=== PATIENT | female | born 1965 | race Caucasian/White ===

== ENCOUNTER 2025-02-18 02:10 | Day surgery (SDC) | payer OTHER, SELFPAY ==
[2025-02-16 09:28] VITALS: BMI 58.0
[2025-02-18 09:37] VITALS: BP 112/66; PULSE 73; RESP 18; TEMP 36.1; O2SAT 100; BMI 57.3
--- NOTE | 2025-02-18 09:41 | SUR.PREOP ---
Pt reports no menstrual cycle in the last year, currently has IUD in place. Reports there is no possible way she is . Spoke with Dr. Mars, received verbal that no urine preg necessary.
[2025-02-18] MEDS: LACTATED RINGERS 1,000 ML 150 ML IV CONT (09:58)
--- NOTE | 2025-02-18 10:20 | WPDANESEPPF ---
Anes - Initial Pre Proc Eval Procedure: Operation Date: 02/18/25 10:30 Proposed Procedures p Diagnostic Colonoscopy - Phil Miguel MD Date/Time: 02/18/25 10:20 Surgeon: Phil Miguel MD Pre Op Diagnosis: Hemorrhage of anus and rectum Patient Data Age: 59 Gender: F Height: 1.7 m Weight: 166 kg Last Vital Signs Temp 97 F L 02/18/25 09:37 Pulse 73 02/18/25 09:37 Resp 18 02/18/25 09:37 BP 112/66 02/18/25 09:37 Pulse Ox 100 02/18/25 09:37 O2 Del Method Room Air 02/18/25 09:37 Allergies Allergy/AdvReac Type Severity Reaction Status Date / Time clarithromycin Allergy Unknown Hives Verified 02/18/25 09:36 metronidazole Allergy Unknown Hives and Verified 02/18/25 09:36 Rash Home Medications ?Medication ?Instructions ?Recorded ?Confirmed ?Type aspirin 325 mg tablet 325 mg PO DAILY 10/30/24 02/18/25 History cholecalciferol (vitamin D3) 125 125 mcg PO DAILY 10/30/24 02/18/25 History mcg (5,000 unit) capsule cyanocobalamin (vitamin B-12) 1,000 mcg PO DAILY 10/30/24 02/18/25 History 1,000 mcg tablet (Vitamin B-12) ferrous sulfate 325 mg (65 mg 325 mg PO DAILY 10/30/24 02/16/25 History iron) tablet,delayed release levothyroxine 200 mcg tablet 225 mcg PO DAILY 10/30/24 02/16/25 History (Synthroid) levothyroxine 25 mcg tablet 225 mcg PO DAILY 10/30/24 02/18/25 History (Synthroid) lisinopril 20 mg tablet 20 mg PO DAILY 10/30/24 02/18/25 History lorazepam 0.5 mg tablet (Ativan) 0.5 mg PO TID PRN anxiety 10/30/24 02/18/25 History metformin 500 mg tablet 500 mg PO DAILY 10/30/24 02/18/25 History naproxen 500 mg tablet (Naprosyn) 500 mg PO BID 10/30/24 02/18/25 History omeprazole 20 mg capsule,delayed 20 mg PO BID 10/30/24 02/18/25 History release tirzepatide 12.5 mg/0.5 mL 12.5 mg subcut WEEKLY 10/30/24 02/18/25 History subcutaneous pen injector (Mounjaro) tirzepatide 10 mg/0.5 mL 12.5 mg subcut WEEKLY 10/31/24 02/16/25 History subcutaneous pen injector (Mounjaro) Laboratory Tests 02/18/25 09:57 POC Capillary Glucose Pending Patient hx anesthesia problems: none Family hx anesthesia problems: none Results Review: All pre-operative results and documents have been reviewed as part of the pre-operative evaluation. [facility] Past Medical History Medical History Colonoscopy planned History of endometrial biopsy Scoliosis Hypothyroidism Hypertension GERD (gastroesophageal reflux disease) Clotting disorder Surgical History Surgical History H/O: hysterectomy H/O section History of breast biopsy History of abdominal surgery Family History Family History Mother Cerebrovascular accident Father Rheumatoid aortitis Seizures Sibling Epilepsy Social History Social History Smoking status: Never smoker Alcohol intake: former Substance use: never Anes - Eval Final PreProcedure Day of Procedure 02/18/25 10:20 Patient weight: morbidly obese Lungs: normal air movement Airway: Mallampati scale class II Neurological: alert and oriented Last oral intake: >/= 8 hours ASA classification: IV Emergent: no Anesthetic plan: proceed Anesthesia type and monitoring: general GIVS and standard monitoring Results Review: All pre-operative results and documents have been reviewed as part of the pre-operative evaluation. BMI 57, DM fsbs 91, on GLP1 off for 13 days, HTN, pt w mixed connective tissue disease. Pt essentially nonambulatory, no cp or sob w brief movements Informed Consent: The patient's anesthetic plan and its attendant risks and benefits were discussed with the patient/family/POA. Questions were solicited and answers provided to the satisfaction of the patient/family/POA.
--- NOTE | 2025-02-18 10:25 | PM.HPGS ---
History of Present Illness History of Present Illness Consent: Risks, benefits, and alternatives have been discussed and questions answered. Patient agrees to proceed with procedure. Chief complaint: Hemorrhage of anus and rectum Narrative: Tesha Sylvester is a 59 year old female with intermittent rectal bleeding, last colonoscopy 2014 Review of Systems Review of Systems: All systems reviewed & are unremarkable except as noted in HPI and below PMFSH Past Medical History Medical History Colonoscopy planned History of endometrial biopsy Scoliosis Hypothyroidism Hypertension GERD (gastroesophageal reflux disease) Clotting disorder Surgical History Surgical History H/O: hysterectomy H/O section History of breast biopsy History of abdominal surgery Family History Family History Mother Cerebrovascular accident Father Rheumatoid aortitis Seizures Sibling Epilepsy Social History Social History Smoking status: Never smoker Alcohol intake: former Substance use: never Meds Home Medications and Allergies Home Medications ?Medication ?Instructions ?Recorded ?Confirmed ?Type aspirin 325 mg tablet 325 mg PO DAILY 10/30/24 02/18/25 History cholecalciferol (vitamin D3) 125 125 mcg PO DAILY 10/30/24 02/18/25 History mcg (5,000 unit) capsule cyanocobalamin (vitamin B-12) 1,000 mcg PO DAILY 10/30/24 02/18/25 History 1,000 mcg tablet (Vitamin B-12) ferrous sulfate 325 mg (65 mg 325 mg PO DAILY 10/30/24 02/16/25 History iron) tablet,delayed release levothyroxine 200 mcg tablet 225 mcg PO DAILY 10/30/24 02/16/25 History (Synthroid) levothyroxine 25 mcg tablet 225 mcg PO DAILY 10/30/24 02/18/25 History (Synthroid) lisinopril 20 mg tablet 20 mg PO DAILY 10/30/24 02/18/25 History lorazepam 0.5 mg tablet (Ativan) 0.5 mg PO TID PRN anxiety 10/30/24 02/18/25 History metformin 500 mg tablet 500 mg PO DAILY 10/30/24 02/18/25 History naproxen 500 mg tablet (Naprosyn) 500 mg PO BID 10/30/24 02/18/25 History omeprazole 20 mg capsule,delayed 20 mg PO BID 10/30/24 02/18/25 History release tirzepatide 12.5 mg/0.5 mL 12.5 mg subcut WEEKLY 10/30/24 02/18/25 History subcutaneous pen injector (Mounjaro) tirzepatide 10 mg/0.5 mL 12.5 mg subcut WEEKLY 10/31/24 02/16/25 History subcutaneous pen injector (Mounjaro) Allergies Allergy/AdvReac Type Severity Reaction Status Date / Time clarithromycin Allergy Unknown Hives Verified 02/18/25 09:36 metronidazole Allergy Unknown Hives and Verified 02/18/25 09:36 Rash Vital Signs Vital Signs - 24 hr 02/18/25 09:37 Temperature 97 F L Pulse Rate 73 Respiratory Rate 18 Blood Pressure 112/66 Pulse Oximetry 100 Oxygen Delivery Room Air Exam Const: General: comfortable and no acute distress HENMT: Face/Nose/Sinus: Normal nares present Eyes: General: appearance normal, both eyes and all related structures Neck: Neck: no JVD Resp: Auscultation: clear to auscultation bilaterally Cardio: Rate: regular rate Rhythm: regular rhythm GI: Inspection: non-distended GI Palp: Yes Soft to palpation Skin: General skin exam: normal color Neuro: Speech: normal speech Extrem: General: normal to inspection Psych: Mental Status: mental status grossly normal Assessment and Plan Assessment and plan (1) Rectal bleeding: Code(s): K62.5 - Hemorrhage of anus and rectum Status: Acute Assessment and Plan: colonoscopy
[2025-02-18 10:46] VITALS: BP 109/83; PULSE 78; RESP 16; O2SAT 100
--- NOTE | 2025-02-18 10:46 | S_PTH ---
PATIENT: Tesha Sung LOC: [facility] Ram#:[id number] AGE/SX: 59/F ROOM: RE02/18/[address]: Phil Miguel MD : 1965 BED: DIS: 02/18/2025 SPEC #: [id number] RECD: 02/18/25 13:43 STATUS: HEATHER REMichael #: [id number] LOGAN: 02/18/25 10:[address]: Phil Miguel DEPT: [facility] Surgical RECD BY: Cecilia Mon ENTERED: 02/18/25 13:43 SP TYPE: Surgical OTHR DR: Jeff Daley, Tissues: A - Colon Polypectomy Procedures: Hematoxylin and Eosin Stain Gross and Microscopic Level 4
[2025-02-18 10:56] VITALS: BP 115/55; PULSE 75; RESP 24; O2SAT 100
[2025-02-18 11:06] VITALS: BP 96/54; PULSE 72; RESP 15; O2SAT 100
== END 2025-02-18 11:23 | disposition home or self-care (01) ==
PROVIDERS: PCP Internal Medicine; Referring Provider Nurse Practitioner Family; Visit Provider Internal Medicine Gastroenterology
PROC: 0DJD8ZZ Inspection of Lower Intestinal Tract, Via Natural or Artificial Opening Endoscopic (ICD-10-PCS; CPT 45378; principal; 2025-02-18 10:30)
DX: D12.2 Benign neoplasm of ascending colon (principal); K64.8 Other hemorrhoids; E03.9 Hypothyroidism, unspecified; I10 Essential (primary) hypertension; K21.9 Gastro-esophageal reflux disease without esophagitis; E11.9 Type 2 diabetes mellitus without complications; M41.9 Scoliosis, unspecified; M35.1 Other overlap syndromes; E66.01 Morbid (severe) obesity due to excess calories; Z68.43 Body mass index [BMI] 50.0-59.9, adult; Z79.82 Long term (current) use of aspirin; Z79.84 Long term (current) use of oral hypoglycemic drugs; Z79.1 Long term (current) use of non-steroidal anti-inflammatories (NSAID); Z79.85 Long-term (current) use of injectable non-insulin antidiabetic drugs; Z98.890 Other specified postprocedural states
CPT/HCPCS: 45380; 82948; 88305; J2704; J7120